=== PATIENT | male | born 1995 | race Caucasian/White ===

== ENCOUNTER → 2016-04-07 | Outpatient (CLI) | payer BC, OTHER | LOC: COL.RAD 08:07 | DX: M24.811 Other specific joint derangements of right shoulder, not elsewhere classified (principal); M25.511 Pain in right shoulder | CPT/HCPCS: A9585; Q9967 ==

== ENCOUNTER → 2017-02-17 | Outpatient (CLI) | payer BC, OTHER | LOC: ZCOL.LAB 16:34 | DX: Z01.812 Encounter for preprocedural laboratory examination (principal); Z86.14 Personal history of Methicillin resistant Staphylococcus aureus infection ==